=== PATIENT | male | born 1950 | race Caucasian/White ===

== ENCOUNTER 2018-11-04 05:30 | Day surgery (SDC) | payer OTHER ==
[~2018-11-04] VITALS: Ht 166.4 cm; Wt 64.5 kg
[2018-11-04] MEDS ORDERED: ALBUTEROL SULFATE 2.5 MG/0.5 ML NEB SOLUTION NEB ONE (05:31)
[2018-11-04] MEDS ORDERED: BENZOCAINE 20% 50 MCG/SPRAY 57 GM TP ONE (05:31)
[2018-11-04] MEDS ORDERED: LIDOCAINE 4% 50 ML SOLUTION TP ONE (05:31)
[2018-11-04] MEDS ORDERED: LIDOCAINE 2% 5 ML JELLY TP ONE (05:31)
[2018-11-04] MEDS ORDERED: SODIUM CHLORIDE 0.9% 1,000 ML IV ONE ×2 (05:36→06:30)
[2018-11-04] MEDS ORDERED: ALBU8.5H8 IH (06:40)
[2018-11-04] MEDS ORDERED: PRED10 PO (06:40)
[2018-11-04] MEDS ORDERED: MONT10TA21 PO (06:40)
[2018-11-04] MEDS ORDERED: RANI150T7 PO (06:40)
[2018-11-04] MEDS ORDERED: D-ME118S13 PO (06:40)
[2018-11-04] MEDS ORDERED: MIDAZOLAM HCL 2 MG/2 ML VIAL ONE (07:32)
[2018-11-04] MEDS ORDERED: FentaNYL CITRATE-PF 100 MCG/2 ML VIAL ONE (07:32)
[2018-11-04] MEDS ORDERED: MethylPREDNISolone SOD SUCC 125 MG/2 ML VIAL IVP ONE (08:45)
[2018-11-04] MEDS ORDERED: MethylPREDNISolone SOD SUCC 125 MG/2 ML VIAL ONE (08:45)
[2018-11-04] MEDS ORDERED: OXYGEN THERAPY IH SCH (20:00)
== END 2018-11-04 10:30 | disposition home or self-care (01) ==
LOC: SURGERY 05:30
PROVIDERS: ATTEND Internal Medicine Critical Care Medicine
DX: J38.4 Edema of larynx (principal); B37.0 Candidal stomatitis; Z88.8 Allergy status to other drugs, medicaments and biological substances
CPT/HCPCS: 31623; 31624; 71045; 87015; 87070; 87101; 87205; 87206; 87220; 88108; 88312; J2250; J2930; J3010; J7030